=== PATIENT | female | born 1980 | race Caucasian/White ===

== ENCOUNTER 2019-12-13 06:28 | Inpatient (IN) | payer OTHER ==
[~2019-12-13 06:28] MED LIST: Lidocaine 1%/Sod Bicarbonate in NS 8.4% 1 ML Syringe IDERM PRN; Sodium Chloride 0.9% 10 ML Syringe FLUSH PRN
[2019-12-13] MEDS ORDERED: cloNIDine 1,000 MCG/10 ML SDV ONE (06:53)
[2019-12-13] MEDS ORDERED: Morphine PF 10 MG/10 ML SDV ONE (06:53)
[2019-12-13] MEDS ORDERED: fentaNYL 100 MCG/2 ML SDV ONE (06:53)
[2019-12-13] MEDS ORDERED: Bupivacaine 0.5% 30 ML SDV ONE (07:04)
[2019-12-13] MEDS: Lactated Ringers 1,000 ML IV SCH ×2 (07:10→10:05)
--- NOTE | 2019-12-13 07:33 | PCM.PREANE ---
Preanesthetic Assessment - Anesthesia/Transfusion/Family Hx Anesthesia History: Prior Anesthesia Reaction Transfusion History: No Prior Transfusion(s) - Review of Systems General: No Symptoms Pulmonary: No Symptoms Cardiovascular: No Symptoms Gastrointestinal: No Symptoms Neurological: No Symptoms Other: Reports: None - Physical Assessment NPO Status Date: 12/12/19 NPO Status Time: 18:00 Vital Signs: Last Vital Signs Temp 98.2 F 12/13/19 06:40 Pulse 92 12/13/19 06:40 Resp 16 12/13/19 06:40 BP 112/74 12/13/19 06:40 Pulse Ox 99 12/13/19 06:40 Height: 1.57 m Weight: 73.028 kg ASA Class: 1 Mental Status: Alert & Oriented x3 Dentition: Reports: Normal Dentition Thyro-Mental Finger Breadths: 3 Mouth Opening Finger Breadths: 3 ROM/Head Extension: Full Lungs: Clear to Auscultation, Normal Respiratory Effort - Lab Values: Laboratory Last Values WBC 7.98 K/mm3 (3.98-10.04) 12/02/19 11:50 RBC 5.31 M/mm3 (3.98-5.22) H 12/02/19 11:50 Hgb 15.3 gm/dl (11.2-15.7) 12/02/19 11:50 Hct 46.6 % (34.1-44.9) H 12/02/19 11:50 MCV 87.8 fl (79.4-94.8) 12/02/19 11:50 MCH 28.8 pg (25.6-32.2) 12/02/19 11:50 MCHC 32.8 g/dl (32.2-35.5) 12/02/19 11:50 RDW Std Deviation 44.5 fL (36.4-46.3) 12/02/19 11:50 Plt Count 328 K/mm3 (182-369) 12/02/19 11:50 MPV 10.8 fl (9.4-12.3) 12/02/19 11:50 Neut % (Auto) 68.0 % (34.0-71.1) 12/02/19 11:50 Lymph % (Auto) 24.4 % (19.3-51.7) 12/02/19 11:50 [place] % (Auto) 7.6 % (4.7-12.5) 12/02/19 11:50 Eos % (Auto) 0 (0.7-5.8) L 12/02/19 11:50 Baso % (Auto) 0.0 % (0.1-1.2) L 12/02/19 11:50 Neut # (Auto) 5.42 K/mm3 (1.56-6.13) 12/02/19 11:50 Lymph # (Auto) 1.95 K/mm3 (1.18-3.74) 12/02/19 11:50 [place] # (Auto) 0.61 K/mm3 (0.24-0.36) H 12/02/19 11:50 Eos # (Auto) 0.00 K/mm3 (0.04-0.36) L 12/02/19 11:50 Baso # (Auto) 0.00 K/mm3 (0.01-0.08) L 12/02/19 11:50 Manual Slide Review Not Reportable 12/02/19 11:50 Creatinine 0.9 mg/dL (0.55-1.02) 12/02/19 11:50 Est Cr Clr Drug Dosing TNP 12/02/19 11:50 Estimated GFR (MDRD) > 60 mL/min (>60) 12/02/19 11:50 Urine Color Yellow (Yellow) 12/02/19 11:50 Urine Appearance Clear (Clear) 12/02/19 11:50 Urine pH 7.5 (5.0-8.0) 12/02/19 11:50 Ur Specific [place] 1.020 (1.005-1.030) 12/02/19 11:50 Urine Protein Negative (Negative) 12/02/19 11:50 Urine Glucose (UA) Negative (Negative) 12/02/19 11:50 Urine Ketones 1+ (Negative) H 12/02/19 11:50 Urine Occult Blood Negative (Negative) 12/02/19 11:50 Urine Nitrite Negative (Negative) 12/02/19 11:50 Urine Bilirubin Negative (Negative) 12/02/19 11:50 Urine Urobilinogen 0.2 (0.2-1.0) 12/02/19 11:50 Ur Leukocyte Esterase Trace (Negative) H 12/02/19 11:50 Urine RBC 0-5 /hpf (0-5) 12/02/19 11:50 Urine WBC 5-10 /hpf (0-5) H 12/02/19 11:50 Ur Squamous Epith Cells 0-5 /hpf (0-5) 12/02/19 11:50 Urine Bacteria Few /hpf (FEW) 12/02/19 11:50 Urine Mucus Few /hpf (FEW) 12/02/19 11:50 Urine HCG, Qual Negative (NEGATIVE) 12/13/19 06:38 - Allergies Allergies/Adverse Reactions: Allergies Allergy/AdvReac Type Severity Reaction Status Date / Time buspirone [From BuSpar] Allergy Headache Verified 12/12/19 14:01 latex Allergy Hives Verified 12/12/19 14:01 paroxetine [From Paxil] Allergy Dizziness Verified 12/12/19 14:01 phenobarbital Allergy Hives Verified 12/12/19 14:01 - Acknowledgements Anesthesia Type Planned: Spinal Pt an Appropriate Candidate for the Planned Anesthesia: Yes Alternatives and Risks of Anesthesia Discussed w Pt/Guardian: Yes Pt/Guardian Understands and Agrees with Anesthesia Plan: Yes PreAnesthesia Questionnaire HEENT History: Reports: Allergic Rhinitis 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: Polycystic Ovaries, Other (See Below) Other OB/BYN History: irregular menses, menorrhagia, dysmenorrhea, PCOS, infertility Dermatologic History: Reports: Other (See Below) Other Dermatologic History: lipoma on buttock with excsion - Past Surgical History Head Surgeries/Procedures: Reports: None HEENT Surgical History: Reports: Adenoidectomy, Oral Surgery, Tonsillectomy Cardiovascular Surgical History: Reports: None Respiratory Surgical History: Reports: None GI Surgical History: Reports: None Female Surgical History: Reports: None Male Surgical History: Reports: None Endocrine Surgical History: Reports: None Neurological Surgical History: Reports: None Musculoskeletal Surgical History: Reports: None Oncologic Surgical History: Reports: None Dermatological Surgical History: Reports: None - SUBSTANCE USE Smoking Status *Q: Never Smoker Second Hand Smoke Exposure: No Recreational Drug Use History: No - HOME MEDS Home Medications: Home Meds Cholecalciferol (Vitamin D3) [Vitamin D3] 1,000 unit PO DAILY 12/12/19 [History] Escitalopram Oxalate 10 mg PO DAILY 12/12/19 [History] Norethindrone [Aygestin] 5 mg PO DAILY 12/12/19 [History] Phentermine HCl 37.5 mg PO DAILY 12/12/19 [History] - CURRENT (IN HOUSE) MEDS Current Meds: Current Medications Lactated Ringer's (Ringers, Lactated) 1,000 mls @ 125 mls/hr IV ASDIRECTED JULIANNA Stop: 12/13/19 23:00 Last Admin: 12/13/19 07:10 Dose: 125 mls/hr Lidocaine/Sodium Bicarbonate (Buffered Lidocaine 1% In Ns 8.4%) 0.25 ml IDERM ONETIME PRN PRN Reason: Prior to IV Start Stop: 12/13/19 18:00 Last Admin: 12/13/19 07:09 Dose: 0.25 ml Sodium Chloride (Saline Flush) 10 ml FLUSH ASDIRECTED PRN PRN Reason: Keep Vein Open Stop: 12/13/19 18:00 Discontinued Medications Bupivacaine HCl (Marcaine 0.5%) Confirm Administered Dose 30 ml .ROUTE .STK-MED ONE Stop: 12/13/19 07:05 Clonidine HCl (Duraclon) Confirm Administered Dose 1,000 mcg .ROUTE .STK-MED ONE Stop: 12/13/19 06:54 Fentanyl (Sublimaze) Confirm Administered Dose 100 mcg .ROUTE .STK-MED ONE Stop: 12/13/19 06:54 Morphine Sulfate (Duramorph Pf) Confirm Administered Dose 10 mg .ROUTE .STK-MED ONE Stop: 12/13/19 06:54
[2019-12-13] MEDS ORDERED: Midazolam 1 MG/ML 2 ML SDV ONE (07:35)
[2019-12-13] MEDS ORDERED: Propofol 200 MG/20 ML SDV ONE (07:48)
[2019-12-13] MEDS ORDERED: Lidocaine 1% 4 ML ONE (07:49)
[2019-12-13] MEDS ORDERED: ceFAZolin 1 GM Vial ONE (07:51)
[2019-12-13] MEDS ORDERED: fentaNYL 100 MCG/2 ML SDV IVPUSH PRN (08:52)
[2019-12-13] MEDS ORDERED: Ondansetron 4 MG/2 ML SDV IVPUSH PRN ×2 (08:52→10:55)
[2019-12-13] MEDS ORDERED: diphenhydrAMINE 50 MG/ML SDV IVPUSH PRN (08:52)
[2019-12-13] MEDS ORDERED: Lactated Ringers 1,000 ML ONE (08:57)
[2019-12-13] MEDS ORDERED: Ondansetron 4 MG/2 ML SDV ONE (09:00)
--- NOTE | 2019-12-13 09:30 | PCM.OPNOTE ---
- General Post-Op/Procedure Note Date of Surgery/Procedure: 12/13/19 Operative Procedure(s): Total Abdominal Hysterectomy with bilateral salpingectomy and biopsy of left ovary Findings: Small lesion present on the left ovary and cyst with endometriosis. Small uterus , normal-appearing ovaries otherwise. Fallopian tubes unremarkable. Small pedunculated fibroid 1 cm in size located on the back side of the uterine fundus. Pre Op Diagnosis: 1. Menorrhagia. 2. Dysmenorrhea Post-Op Diagnosis: Same with possible endometriosis Anesthesia Technique: Moderate Sedation, Spinal Other Anesthesia Type: Marcaine 0.5%20 mL local Primary Surgeon: Abilio Herrera Secondary Surgeon: Arsalan Chao Anesthesia Provider: Ken Hamilton Night Clerk: Kerrie Solis Role of Night Clerk: Retraction, assistance, quality of care, patient safety. Pathology: Uterus and bilateral fallopian tubes Fluid Replacement, Intraop: 1,600 Output, Urine Amount: 150 Complications: None Condition: Good Free Text/Narrative:: Surgery duration: 45 minutes Procedure: After adequate consent was obtained, the patient was taken to the operating room. She was given 2 g of Ancef IV for infection prophylaxis. She had sequential compression stockings placed for DVT prophylaxis. She is administered general endotracheal anesthesia. After adequate administration of anesthesia patient was placed in a frog-leg position and was prepped vaginally and abdominally in the routine fashion. Hernández catheter was placed. Patient's abdomen was then opened through her old Pfannenstiel skin incision scar. Old scar was removed as it was somewhat hypertrophic. The incision was carried down through skin, subcutaneous and fascial layers. Abdominal cavity was entered without problems. Small spot noted on the left ovary consistent with endometriosis. 1 cm posterior uterine pedunculated fundal fibroid also noted. A medium sized Rahat self-retaining retractor was placed. The uterus was elevated with a double-tooth tenaculum at the fundus. The adhesions on the back scissors were taken down using sharp and blunt dissection taking care to avoid injury to the bowel. Absent left ovary was taken. Using a Enseal vessel closure device the right infundibulopelvic ligament and eventually the fallopian tube mesosalpinx was taken down. Ovaries were conserved per patient desire. The ovarian ligament, round ligament, broad ligament were then taken down in a routine stepwise fashion using the Enseal system. Same was done on patient's left side. The cardinal ligaments and taken down on each side to the level of the to the cervix. The angles of the vagina were then crossclamped using Shiv clamps 2 these pedicles were cut and were suture ligated with Shiv stitch of #1 Vicryl. A short running locked #1 Vicryl suture was then placed in the mid incision to complete the closure. Hemostasis was confirmed at this time. The pelvis was irrigated with fluid aspirated. The one sponge that had been placed was removed. Interceed adhesion barrier was applied to the left ovary were biopsy was obtained. The abdominal was then closed. The fascia was closed with a running suture of #1 PDS from angle to angle. The subcutaneous area was closed with 20 Monocryl suture first an interrupted layer. Subcuticular closure was then undertaken using 3-0 Monocryl suture on the Dar needle. The incision was further asked made with Prineo mesh. The patient was awakened from general endotracheal anesthesia and was discharged from the operating room in good condition.
--- NOTE | 2019-12-13 09:32 | PCM.POSTAN ---
POST ANESTHESIA ASSESSMENT - MENTAL STATUS Mental Status: Somnolent - VITAL SIGNS Vital Signs: Last Vital Signs Temp 97.4 F 12/13/19 09:17 Pulse 92 12/13/19 06:40 Resp 13 12/13/19 09:17 BP 93/44 L 12/13/19 09:17 Pulse Ox 97 12/13/19 09:17 - RESPIRATORY Respiratory Status: Respiratory Rate WNL, Airway Patent, O2 Saturation Stable, Supplemental Oxygen - CARDIOVASCULAR CV Status: Pulse Rate WNL, Blood Pressure Stable - GASTROINTESTINAL GI Status: No Symptoms - PAIN Pain Score: 0 (post SAB) - POST OP HYDRATION Hydration Status: Adequate & Stable
[2019-12-13] MEDS ORDERED: Lactated Ringers 1,000 ML IV SCH (10:55)
[2019-12-13] MEDS: Acetaminophen/oxyCODONE 325-5 MG Tab PO PRN ×3 (12:26→20:55)
[2019-12-13] MEDS: Ibuprofen 600 MG Tab PO PRN ×2 (14:41→20:57)
[2019-12-14] MEDS: Ibuprofen 600 MG Tab PO PRN ×3 (03:09→22:05)
--- NOTE | 2019-12-14 06:44 | PCM.PN ---
- General Info Date of Service: 12/14/19 Subjective Update: Patient resting very comfortably. at bedside. States very long night. Some urinary retention post catheter removal. Doing better now and was finally able to void and rest. Functional Status: Reports: Pain Controlled - Review of Systems General: Reports: No Symptoms HEENT: Reports: No Symptoms Pulmonary: Reports: No Symptoms Cardiovascular: Reports: No Symptoms Gastrointestinal: Reports: No Symptoms Genitourinary: Reports: No Symptoms Musculoskeletal: Reports: No Symptoms Skin: Reports: No Symptoms Neurological: Reports: No Symptoms Psychiatric: Reports: No Symptoms - Patient Data Vitals - Most Recent: Last Vital Signs Temp 36.6 C 12/14/19 03:05 Pulse 79 12/14/19 03:05 Resp 18 12/14/19 03:05 BP 107/55 L 12/14/19 03:05 Pulse Ox 98 12/14/19 03:05 Weight - Most Recent: 73.028 kg I&O - Last 24 Hours: Intake & Output 12/13/19 12/13/19 12/14/19 14:59 22:59 06:59 Intake Total 2050 2340 1350 Output Total 487 940 4560 Balance 1450 1690 325 Lab Results Last 24 Hours: Laboratory Results - last 24 hr 12/13/19 12/13/19 Range/Units 06:38 06:45 Urine HCG, Qual Negative (NEGATIVE) Blood Type B POSITIVE Gel Antibody Screen Negative Med Orders - Current: Current Medications Ibuprofen (Motrin) 600 mg PO Q6H PRN PRN Reason: Pain (mild 1-3) Last Admin: 12/14/19 03:09 Dose: 600 mg Ondansetron HCl (Zofran) 4 mg IVPUSH Q4H PRN PRN Reason: Nausea/Vomiting Oxycodone/Acetaminophen (Percocet 325-5 Mg) 2 tab PO Q4H PRN PRN Reason: Pain (severe 7-10) Last Admin: 12/13/19 20:55 Dose: 2 tab Discontinued Medications Bupivacaine HCl (Marcaine 0.5%) Confirm Administered Dose 30 ml .ROUTE .STK-MED ONE Stop: 12/13/19 07:05 Last Admin: 12/13/19 08:27 Dose: 20 ml Cefazolin Sodium (Ancef) Confirm Administered Dose 2 gm .ROUTE .STK-MED ONE Stop: 12/13/19 07:52 Clonidine HCl (Duraclon) Confirm Administered Dose 1,000 mcg .ROUTE .STK-MED ONE Stop: 12/13/19 06:54 Diphenhydramine HCl (Benadryl) 25 mg IVPUSH Q6H PRN PRN Reason: Pruritis Fentanyl (Sublimaze) Confirm Administered Dose 100 mcg .ROUTE .STK-MED ONE Stop: 12/13/19 06:54 Fentanyl (Sublimaze) 50 mcg IVPUSH Q5M PRN PRN Reason: Pain Lactated Ringer's (Ringers, Lactated) 1,000 mls @ 125 mls/hr IV ASDIRECTED JULIANNA Stop: 12/13/19 23:00 Last Admin: 12/13/19 10:05 Dose: 125 mls/hr Lidocaine HCl (Xylocaine-Mpf 1%) Confirm Administered Dose 4 mls @ as directed .ROUTE .STK-MED ONE Stop: 12/13/19 07:50 Lactated Ringer's (Ringers, Lactated) Confirm Administered Dose 1,000 mls @ as directed .ROUTE .STK-MED ONE Stop: 12/13/19 08:58 Lactated Ringer's (Ringers, Lactated) 1,000 mls @ 125 mls/hr IV ASDIRECTED [facility] Lidocaine/Sodium Bicarbonate (Buffered Lidocaine 1% In Ns 8.4%) 0.25 ml IDERM ONETIME PRN PRN Reason: Prior to IV Start Stop: 12/13/19 18:00 Last Admin: 12/13/19 07:09 Dose: 0.25 ml Midazolam HCl (Versed 1 Mg/Ml) Confirm Administered Dose 4 mg .ROUTE .STK-MED ONE Stop: 12/13/19 07:36 Morphine Sulfate (Duramorph Pf) Confirm Administered Dose 10 mg .ROUTE .STK-MED ONE Stop: 12/13/19 06:54 Ondansetron HCl (Zofran) 4 mg IVPUSH ONETIME PRN PRN Reason: Nausea/Vomiting Ondansetron HCl (Zofran) Confirm Administered Dose 8 mg .ROUTE .STK-MED ONE Stop: 12/13/19 09:01 Propofol (Diprivan 20 Ml) Confirm Administered Dose 400 mg .ROUTE .STK-MED ONE Stop: 12/13/19 07:49 Sodium Chloride (Saline Flush) 10 ml FLUSH ASDIRECTED PRN PRN Reason: Keep Vein Open Stop: 12/13/19 18:00 - Exam General: Other (resting comfortably) Lungs: Normal Respiratory Effort Cardiovascular: Regular Rate, Regular Rhythm Psy/Mental Status: Other Sepsis Event Note - Evaluation Sepsis Screening Result: No Definite Risk - Focused Exam Vital Signs: Vital Signs Temp Pulse Resp BP Pulse Ox 12/14/19 03:05 36.6 C 79 18 107/55 L 98 12/14/19 00:26 37.0 C 12/14/19 00:15 71 20 103/62 99 12/13/19 20:16 36.8 C 84 12 108/62 100 Date Exam was Performed: 12/14/19 Time Exam was Performed: 06:41 - Problem List Review Problem List Initiated/Reviewed/Updated: Yes - Assessment Assessment:: POD1 s/p WILFRID. - some urinary retention over night - resolved - continue to measure voids -pain control struggles but better currently -live in [place] - plan to consider discharge later today and then they would stay in hotel locally. Otherwise home tomorrow if issues resolved
[2019-12-14] MEDS: Acetaminophen/oxyCODONE 325-5 MG Tab PO PRN ×2 (08:22→17:52)
--- NOTE | 2019-12-14 09:23 | PCM48HPAN ---
Post Anesthesia Note - EVALUATION WITHIN 48HRS OF ANESTHETIC Vital Signs in Normal Range: Yes Patient Participated in Evaluation: Yes Respiratory Function Stable: Yes Airway Patent: Yes Cardiovascular Function Stable: Yes Hydration Status Stable: Yes Pain Control Satisfactory: Yes Nausea and Vomiting Control Satisfactory: Yes Mental Status Recovered: Yes Vital Signs: Last Vital Signs Temp 36.8 C 12/14/19 08:08 Pulse 85 12/14/19 08:08 Resp 16 12/14/19 08:08 BP 97/47 L 12/14/19 08:08 Pulse Ox 99 12/14/19 08:08
[2019-12-15] MEDS: Ibuprofen 600 MG Tab PO PRN ×2 (04:35→10:46)
--- NOTE | 2019-12-15 09:01 | PCM.DCSUM1 ---
Discharge Summary - Hospital Course Brief History: Admitted for WILFRID. No isusues postop. Discharged POD2 Diagnosis: Stroke: No - Discharge Data Discharge Date: 12/15/19 Discharge Disposition: Home, Self-Care 01 Condition: Good - Referral to Home Health Primary Care Physician: Leigh Ann aYrbrough NP - Patient Summary/Data Operative Procedure(s) Performed: Total Abdominal Hysterectomy with bilateral salpingectomy and biopsy of left ovary - Patient Instructions Diet: Usual Diet as Tolerated Activity: Cough & Deep Breathe, No Lifting Over 10 Pounds, No Strenuous Activities Activity, Other: pelvic rest Driving: Do Not Drive Showering/Bathing: May Shower Wound/Incision Care: Keep Operative Site/Wound Site Clean and Dry Notify Provider of: Fever, Increased Pain, Swelling and Redness, Drainage, Nausea and/or Vomiting - Discharge Plan *PRESCRIPTION DRUG MONITORING PROGRAM REVIEWED*: No *COPY OF PRESCRIPTION DRUG MONITORING REPORT IN PATIENT NATASHA: No Home Medications: Home Meds Cholecalciferol (Vitamin D3) [Vitamin D3] 1,000 unit PO DAILY 12/12/19 [History] Escitalopram Oxalate 10 mg PO DAILY 12/12/19 [History] Acetaminophen/oxyCODONE [Percocet 325-5 MG] 2 tab PO Q4H PRN tablet 12/15/19 [ Rx] Ibuprofen [Motrin] 600 mg PO Q6H PRN tablet 12/15/19 [Rx] Referrals: Abilio Herrera MD [Physician] - (2 weeks and 4 weeks) - Discharge Summary/Plan Comment DC Time >30 min.: No - General Info Date of Service: 12/15/19 Functional Status: Reports: Pain Controlled, Tolerating Diet. Denies: New Symptoms - Review of Systems General: Reports: No Symptoms HEENT: Reports: No Symptoms Pulmonary: Reports: No Symptoms Cardiovascular: Reports: No Symptoms Gastrointestinal: Reports: No Symptoms Genitourinary: Reports: No Symptoms Musculoskeletal: Reports: No Symptoms Skin: Reports: No Symptoms Neurological: Reports: No Symptoms Psychiatric: Reports: No Symptoms - Patient Data Vitals - Most Recent: Last Vital Signs Temp 37.1 C 12/15/19 04:27 Pulse 93 12/15/19 04:27 Resp 12 12/15/19 04:27 BP 101/54 L 12/15/19 04:27 Pulse Ox 96 12/15/19 04:27 Weight - Most Recent: 73.028 kg I&O - Last 24 hours: Intake & Output 12/14/19 12/15/19 12/15/19 21:59 06:59 14:59 Intake Total Output Total Balance Med Orders - Current: Current Medications Ibuprofen (Motrin) 600 mg PO Q6H PRN PRN Reason: Pain (mild 1-3) Last Admin: 12/15/19 04:35 Dose: 600 mg Ondansetron HCl (Zofran) 4 mg IVPUSH Q4H PRN PRN Reason: Nausea/Vomiting Oxycodone/Acetaminophen (Percocet 325-5 Mg) 2 tab PO Q4H PRN PRN Reason: Pain (severe 7-10) Last Admin: 12/14/19 17:52 Dose: 2 tab Discontinued Medications Bupivacaine HCl (Marcaine 0.5%) Confirm Administered Dose 30 ml .ROUTE .STK-MED ONE Stop: 12/13/19 07:05 Last Admin: 12/13/19 08:27 Dose: 20 ml Cefazolin Sodium (Ancef) Confirm Administered Dose 2 gm .ROUTE .STK-MED ONE Stop: 12/13/19 07:52 Clonidine HCl (Duraclon) Confirm Administered Dose 1,000 mcg .ROUTE .STK-MED ONE Stop: 12/13/19 06:54 Diphenhydramine HCl (Benadryl) 25 mg IVPUSH Q6H PRN PRN Reason: Pruritis Fentanyl (Sublimaze) Confirm Administered Dose 100 mcg .ROUTE .STK-MED ONE Stop: 12/13/19 06:54 Fentanyl (Sublimaze) 50 mcg IVPUSH Q5M PRN PRN Reason: Pain Lactated Ringer's (Ringers, Lactated) 1,000 mls @ 125 mls/hr IV ASDIRECTED JULIANNA Stop: 12/13/19 23:00 Last Admin: 12/13/19 10:05 Dose: 125 mls/hr Lidocaine HCl (Xylocaine-Mpf 1%) Confirm Administered Dose 4 mls @ as directed .ROUTE .STK-MED ONE Stop: 12/13/19 07:50 Lactated Ringer's (Ringers, Lactated) Confirm Administered Dose 1,000 mls @ as directed .ROUTE .STK-MED ONE Stop: 12/13/19 08:58 Lactated Ringer's (Ringers, Lactated) 1,000 mls @ 125 mls/hr IV ASDIRECTED JULIANNA Lidocaine/Sodium Bicarbonate (Buffered Lidocaine 1% In Ns 8.4%) 0.25 ml IDERM ONETIME PRN PRN Reason: Prior to IV Start Stop: 12/13/19 18:00 Last Admin: 12/13/19 07:09 Dose: 0.25 ml Midazolam HCl (Versed 1 Mg/Ml) Confirm Administered Dose 4 mg .ROUTE .STK-MED ONE Stop: 12/13/19 07:36 Morphine Sulfate (Duramorph Pf) Confirm Administered Dose 10 mg .ROUTE .STK-MED ONE Stop: 12/13/19 06:54 Ondansetron HCl (Zofran) 4 mg IVPUSH ONETIME PRN PRN Reason: Nausea/Vomiting Ondansetron HCl (Zofran) Confirm Administered Dose 8 mg .ROUTE .STK-MED ONE Stop: 12/13/19 09:01 Propofol (Diprivan 20 Ml) Confirm Administered Dose 400 mg .ROUTE .STK-MED ONE Stop: 12/13/19 07:49 Sodium Chloride (Saline Flush) 10 ml FLUSH ASDIRECTED PRN PRN Reason: Keep Vein Open Stop: 12/13/19 18:00 - Exam General: Reports: Alert, Oriented HEENT: Reports: Pupils Equal, Pupils Reactive, EOMI, Mucous Membr. Moist/Tiburones Neck: Reports: Supple Lungs: Reports: Clear to Auscultation, Normal Respiratory Effort Cardiovascular: Reports: Regular Rate, Regular Rhythm GI/Abdominal Exam: Normal Bowel Sounds, Soft, Non-Tender, No Organomegaly, No Distention, No Abnormal Bruit, No Mass Rectal (Female) Exam: Deferred Back Exam: Reports: Normal Inspection, Full Range of Motion Extremities: Normal Inspection, Normal Range of Motion, Non-Tender, No Pedal Edema, Normal Capillary Refill Skin: Reports: Warm, Dry, Intact, Other (slight irriation above incision) Wound/Incisions: Reports: Healing Well Neurological: Reports: No New Focal Deficit Psy/Mental Status: Reports: Alert, Normal Affect, Normal Mood
[2019-12-15] MEDS: Acetaminophen/oxyCODONE 325-5 MG Tab PO PRN (09:23)
== END 2019-12-15 10:49 | disposition home or self-care (01) | DRG 743 ==
LOC: JD.OB 06:28 → JD.MS 14:14
PROVIDERS: ADMIT Obstetrics & Gynecology; ATTEND Obstetrics & Gynecology
PROC: 0UT90ZZ Resection of Uterus, Open Approach (ICD-10-PCS; principal; 2019-12-13)
PROC: 0UT70ZZ Resection of Bilateral Fallopian Tubes, Open Approach (ICD-10-PCS; 2019-12-13)
PROC: 0UB10ZX Excision of Left Ovary, Open Approach, Diagnostic (ICD-10-PCS; 2019-12-13)
DX: N80.1 Endometriosis of ovary (principal); N94.6 Dysmenorrhea, unspecified; E28.2 Polycystic ovarian syndrome; N92.0 Excessive and frequent menstruation with regular cycle; N83.9 Noninflammatory disorder of ovary, fallopian tube and broad ligament, unspecified; L68.0 Hirsutism; Z88.8 Allergy status to other drugs, medicaments and biological substances; Z79.899 Other long term (current) drug therapy; Z90.89 Acquired absence of other organs
CPT/HCPCS: 00840; 36415; 51701; 51798; 81001; 81025; 82565; 85025; 86850; 86900; 86901; 94762; A9270-GY; C1765; J0690; J0735; J2001; J2250; J2270; J2405; J2704; J3010; J3490; J7120

== ENCOUNTER 2025-01-14 09:09 | Day surgery (SDC) | payer OTHER ==
[~2025-01-14 09:09] MED LIST changes: -Lidocaine 1%/Sod Bicarbonate in NS 8.4% 1 ML Syringe IDERM PRN; +Sodium Chloride 0.9% 10 ML Syringe FLUSH SCH
[2025-01-14] MEDS: Lactated Ringers 1,000 ML IV SCH (10:05)
[2025-01-14] MEDS ORDERED: Lidocaine 2% 5 ML SDV ONE (10:30)
[2025-01-14] MEDS ORDERED: Propofol 200 MG/20 ML SDV ONE ×3 (10:31)
== END 2025-01-14 13:00 | disposition home or self-care (01) ==
LOC: JD.SDS 09:09
PROVIDERS: ATTEND Surgery
DX: K21.9 Gastro-esophageal reflux disease without esophagitis (principal); K44.9 Diaphragmatic hernia without obstruction or gangrene; E78.00 Pure hypercholesterolemia, unspecified; F41.9 Anxiety disorder, unspecified; Z79.899 Other long term (current) drug therapy; Z88.8 Allergy status to other drugs, medicaments and biological substances
CPT/HCPCS: 43239; C9777; J2003; J2704; J7120; 00731